=== PATIENT | female | born 1940 | race Two or more races ===

== ENCOUNTER 2019-08-11 08:31 | Emergency (ER) | payer OTHER ==
[~2019-08-11] VITALS: Ht 152.4 cm; Wt 40.8 kg
== END 2019-08-11 11:53 | disposition home or self-care (01) ==
LOC: ER 08:31
DX: S40.012A Contusion of left shoulder, initial encounter (principal); S46.012A Strain of muscle(s) and tendon(s) of the rotator cuff of left shoulder, initial encounter; W18.39XA Other fall on same level, initial encounter; Y93.89 Activity, other specified; Y92.89 Other specified places as the place of occurrence of the external cause; Y99.8 Other external cause status